=== PATIENT | male | born 1965 | race Caucasian/White ===

== ENCOUNTER 2025-08-16 20:02 | Outpatient (CLI) | payer SELFPAY | END 2025-08-16 23:59 | disposition home or self-care (01) | LOC: SL 20:02 | PROVIDERS: PCP Nurse Practitioner Family; Referring Provider Nurse Practitioner Family; Visit Provider Nurse Practitioner Family | DX: G47.33 Obstructive sleep apnea (adult) (pediatric) (principal) | CPT/HCPCS: 95811 ==